=== PATIENT | female | born 1960 ===

== ENCOUNTER → 2021-12-21 | Outpatient (CLI) | payer OTHER | END | disposition home or self-care (01) | LOC: LAB SHORT 12:16 | DX: C44.519 Basal cell carcinoma of skin of other part of trunk (principal) | CPT/HCPCS: 88305 ==

== ENCOUNTER → 2021-12-31 | Outpatient (CLI) | payer OTHER | END | disposition home or self-care (01) | LOC: LAB SHORT 07:35 | DX: C44.519 Basal cell carcinoma of skin of other part of trunk (principal) | CPT/HCPCS: 88305 ==

== ENCOUNTER → 2022-12-06 | Outpatient (CLI) | payer BC | END | disposition home or self-care (01) | LOC: PLD 12:39 → LAB SHORT 12:39 | DX: D36.17 Benign neoplasm of peripheral nerves and autonomic nervous system of trunk, unspecified (principal) | CPT/HCPCS: 88305 ==